=== PATIENT | female | born 1975 | race Caucasian/White ===

== ENCOUNTER → 2017-01-23 08:25 | Outpatient (CLI) | payer OTHER ==
[2013-11-09 09:52] VITALS: BMI 28.3
[~2017-01-23 08:25] MED LIST: AMITIZA8 MCG PO; DESYREL50 MG PO; FLEXERIL10 MG PO; PRILOSEC20 MG PO
[2017-01-23 10:43] LABS: BILIRUBIN - DIRECT 0.15 mg/dL (0.00-0.30); BILIRUBIN - INDIRECT 0.36 mg/dL (0.00-1.00); BILIRUBIN - TOTAL 0.51 mg/dL (0.2-1.3); PROTEIN - SERUM 7.5 g/dL (6.4-8.2)
[2017-01-28 13:13] LABS: ALP - ISO (ALP) 108 IU/L (39-117); ALP - ISO (BONE) FRACTION 34 % (14-68); ALP - ISO (LIVER) FRACTION 58 % (18-85); ALP - ISO(INTESTINAL) FRACTION 8 % (0-18)
== END | disposition home or self-care (01) ==
LOC: D.US 01-08 08:30 → D.LAB 01-08 09:00 → D.US 08:00
PROVIDERS: Internal Medicine Gastroenterology
DX: R79.89 Other specified abnormal findings of blood chemistry (principal)